=== PATIENT | female | born 1995 | race Caucasian/White ===

== ENCOUNTER 2017-09-30 08:21 | Observation (INO) ==
[2017-09-30] MEDS ORDERED: 0.9 % Sodium Chloride 1,000 ML IVC ONE ×2 (09:07→10:18)
[2017-09-30] MEDS ORDERED: Promethazine 25 MG in 0.9 % Sodium Chloride 50 ML IVPB ONE (09:12)
--- NOTE | 2017-09-30 09:12 | Emergency Department Note ---
Disposition Clinical Impression: Influenza B, Dehydration Qualifiers: Weeks of gestation: 24 weeks Qualified Code(s): Z3A.24 - 24 weeks gestation of Disposition: Admitted As Inpatient Condition: Fair Referrals: NONE,PCP [Primary Care Provider] - Forms: ED Satisfaction Letter General Adult HPI - General Chief complaint: ED Fever Stated complaint: Flu like symptoms Time Seen by Provider: 09/30/17 08:50 Source: patient Mode of arrival: private vehicle Limitations: no limitations Nursing Notes Reviewed: Yes Vital Signs Reviewed: Yes - History of Present Illness Pt Subjective Complaint: "I think I have the flu" Onset (ago): day(s) (1) Location: head, lower extremity, other ("Achey all over") Radiation: non-radiation Pain Severity: moderate Pain Scale: 5 Quality: aching Consistency: constant Improves with: nothing Worsens with: nothing Associated symptoms: Reports: fever/chills, headaches, loss of appetite, malaise , nausea/vomiting. Denies: confusion, chest pain, cough, diaphoresis, rash, seizure, shortness of breath, syncope, weakness, other Treatments Prior to Arrival: none - Related Data Previous Rx's Medication Instructions Recorded Naproxen [Naprosyn] 500 mg PO BID #10 tablet 02/07/16 Allergies Allergy/AdvReac Type Severity Reaction Status Date / Time codeine Allergy Rash Verified 02/07/16 14:34 Iodinated Contrast- Oral and Allergy Rash Verified 02/07/16 14:34 IV Dye [Iodinated Contrast Media - IV Dye] morphine Allergy Rash Verified 02/07/16 14:34 All systems ED: reviewed and negative except as stated. Review of Systems: As Per HPI Constitutional: Reports: fever. Denies: chills, weakness Eyes: Denies: eye pain, eye discharge, vision change ENT ED: Denies: ear pain, throat pain, congestion, dysphagia Cardiovascular: Denies: chest pain, palpitations, dyspnea on exertion, orthopnea , edema, syncope Respiratory: Denies: cough, dyspnea, wheezes, hemoptysis, stridor, sputum production Gastrointestinal: Reports: as per HPI, nausea, vomiting. Denies: abdominal pain , diarrhea, constipation Genitourinary: Denies: urgency, dysuria, frequency, hematuria, discharge Musculoskeletal: Reports: as per HPI, arthralgia, myalgia Integumentary: Denies: rash Neurological: Reports: as per HPI, headache. Denies: weakness, confusion, vertigo Hematological/Lymphatic: Denies: easy bleeding, easy bruising, lymphadenopathy Allergic/Immunologic: Denies: facial swelling, urticaria, itchy eyes Past Medical History - Past Medical History Attestation: Yes The following information was validated with the patient. Source: patient Medical history: Reports: no medical history Psychiatric history: Reports: no psych history TUGGER OPERATOR history: Reports: no TUGGER OPERATOR history LMP comments: (, 24 weeks) - Social History Smoking Status: Never smoker Smokeless Tobacco Status: No Alcohol use: Reports: none Drug use: Reports: none Physical Exam - General Limitations: no limitations General appearance: alert, in no apparent distress - Head Head exam: atraumatic, normocephalic, normal inspection - Eye Eye exam: Present: normal appearance, PERRL. Absent: scleral icterus, conjunctival injection, periorbital swelling - ENT ENT exam: normal oropharynx, mucous membranes dry - Neck Neck exam: Present: normal inspection, full ROM, trachea midline. Absent: tenderness, meningismus, lymphadenopathy - Chest Chest inspection: Present: normal inspection, symmetric chest wall rise. Absent : tenderness - Respiratory Respiratory exam: Present: normal lung sounds bilaterally. Absent: respiratory distress, wheezes, stridor, accessory muscle use, prolonged expiratory phase - Cardiovascular Cardiovascular exam: Present: normal rhythm, tachycardia, normal heart sounds. Absent: systolic murmur, diastolic murmur - Abdominal Exam Abdominal exam: Present: soft, Non-Tender. Absent: guarding, mass - Extremities Exam Extremities exam: Present: normal inspection, normal capillary refill. Absent: pedal edema - Back Exam Back exam: Present: normal inspection. Absent: CVA tenderness (R), CVA tenderness (L) - Neurological Exam Neurological exam: Present: alert, oriented X3, CN II-XII intact, normal gait - Psychiatric Psychiatric exam: Present: normal affect, normal mood - Skin Skin exam: Present: warm, dry, intact, normal color Course Course Narrative: Patient presents for evaluation of generalized malaise, nausea, vomiting and fever. 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 She states that she has been working a lot of hours and is feeling very tired and worn out. The vomiting has made this worse. She denies abdominal pain, leakage of fluid bleeding or vaginal discharge. She also denies any urinary complaints or bowel complaints. On exam , she is very pleasant, smiling, conversant. She is sitting up, talking with me and her family member. She is able to laugh and joke about the situation. She is well appearing, however, she is tachycardic with dry mucous membranes consistent with dehydration. Labs and fluids have been ordered along with antiemetics and Tylenol. Patient's flu swab is positive for influenza B. Urinalysis shows 15 of ketones , no sign of infection. Blood work is essentially unremarkable. - Reevaluation(s) Reevaluation #1: Patient's leg pain and headache are "much better". Still tachycardic. Time: 10:15 - Consultations Consultation #1: Case discussed with TUGGER OPERATOR. They aimee another liter of fluids then re-assess. Time: 10:19 Consultation #2: Still dry. Spoke with Renate - speech communication professor for TUGGER OPERATOR - she will admit the patient. Patient to go to Peds floor. Time: 11:43 Vital Signs Temperature 98.8 F 09/30/17 08:25 Pulse Rate 141 09/30/17 08:25 Respiratory Rate 18 09/30/17 08:25 Blood Pressure 94/56 09/30/17 08:25 O2 Sat by Pulse Oximetry 98 09/30/17 08:25 Temperature 98.8 F 09/30/17 08:25 Pulse Rate 120 09/30/17 11:32 Respiratory Rate 20 09/30/17 11:32 Blood Pressure 104/61 09/30/17 11:32 O2 Sat by Pulse Oximetry 100 09/30/17 11:32 Oxygen Delivery Oxygen Delivery Room Air Medical Decision Making - Medical Records Medical records reviewed: Yes I reviewed the patient's medical records. - Lab Data Lab results reviewed: Yes I reviewed the patient's lab results. Lab results narrative: Laboratory Last Values WBC 9.1 K/mcL (4.3-11.1) 09/30/17 09:22 RBC 3.98 M/mcL (3.82-4.97) 09/30/17 09:22 Hgb 11.9 g/dL (11.5-15.4) 09/30/17 09:22 Hct 34.9 % (35.3-44.9) L 09/30/17:22 MCV 87.7 fL (83.0-100.0) 09/30/17: MCH 29.9 pg (28.0-33.3) 09/30/17: MCHC 34.1 g/dL (31.6-35.5) 09/30/17: RDW 13.5 % (11.5-14.5) 09/30/17: Plt Count 239 K/mcL (140-400) 09/30/17: MPV 9.8 fL (9.4-12.4) 09/30/17: Immature Gran % 0.7 % (0-4) 09/30/17: Seg Neutrophils % 80.2 % 09/30/17: Lymphocytes % 4.5 % 09/30/17: Monocytes % 13.9 % 09/30/17: Eosinophils % 0.4 % 09/30/17: Basophils % 0.3 % 09/30/17: Neutrophils # 7.3 K/mcL (1.6-8.9) 09/30/17: Lymphocytes # 0.4 K/mcL (0.6-4.6) L 09/30/17: Monocytes # 1.3 K/mcL (0.0-1.3) 09/30/17: Eosinophils # 0.0 K/mcL (0.0-0.6) 09/30/17: Basophils # 0.0 K/mcL (0.0-0.2) 09/30/17: Sodium 134 mEq/L (136-145) L 09/30/17: Potassium 3.5 mEq/L (3.5-5.1) 09/30/17: Chloride 105 mEq/L (98-107) 09/30/17: Carbon Dioxide 22 mEq/L (23-29) L 09/30/17: BUN 4 mg/dL (6-20) L 09/30/17: Creatinine 0.58 mg/dL (0.60-1.20) L 09/30/17: Est GFR ( Amer) > 60 (> 60) 09/30/17: Est GFR (Non-Af Amer) > 60 (> 60) 09/30/17 BUN/Creatinine Ratio 7 (6-26) 09/30/17 Glucose 84 mg/dL (70-105) 09/30/17 Calculated Osmolality 274 (280-300) L 09/30/17 Lactic Acid 0.7 mmol/L (0.5-2.2) 09/30/17 Calcium 9.4 mg/dL (8.6-10.3) 09/30/17 Urine Color Yellow (Yellow) 09/30/17 Urine Clarity Turbid (Clear) A 09/30/17 Urine pH 7.0 pH Units (5.0-8.0) 09/30/17 Ur Specific Alto 1.020 (1.010-1.025) 09/30/17: Urine Protein Negative mg/dL (Neg-Trace) 09/30/17 Urine Glucose (UA) Normal mg/dL (Normal) 09/30/17: Urine Ketones 15 mg/dL (Negative) H 09/30/17:30 Urine Blood Negative (Negative) 09/30/17: Urine Nitrite Negative (Negative) 09/30/17: Urine Bilirubin Negative (Negative) 09/30/17: Urine Urobilinogen Normal mg/dL (Normal) 09/30/17: Ur Leukocyte Esterase Negative (Negative) 09/30/17: Urine Microscopic RBC 0-3 per hpf (0-3) 09/30/17: Urine Microscopic WBC 0-3 per hpf (0-3) 09/30/17:30 Ur Squamous Epith Cells Many per lpf (None-Few) H 09/30/17: Amorphous Sediment Few (Few) 09/30/17 Urine Bacteria Few per hpf (None-Few) 09/30/17: Hyaline Casts None Seen per lpf (None-Few) 09/30/17: Ur Culture Indicated? NO (NO) 09/30/17 Flu B is positive Result diagrams: 09/30/17:22 01/25/18 09:22 Lab Results 09/30/17 09/30/17 09/30/17 Range/Units 09:22 09:22 09:22 WBC 9.1 (4.3-11.1) K/mcL RBC 3.98 (3.82-4.97) M/mcL Hgb 11.9 (11.5-15.4) g/dL Hct 34.9 L (35.3-44.9) % MCV 87.7 (83.0-100.0) fL MCH 29.9 (28.0-33.3) pg MCHC 34.1 (31.6-35.5) g/dL RDW 13.5 (11.5-14.5) % Plt Count 239 (140-400) K/mcL MPV 9.8 (9.4-12.4) fL Immature Gran % 0.7 (0-4) % Seg Neutrophils % 80.2 % Lymphocytes % 4.5 % Monocytes % 13.9 % Eosinophils % 0.4 % Basophils % 0.3 % Neutrophils # 7.3 (1.6-8.9) K/mcL Lymphocytes # 0.4 L (0.6-4.6) K/mcL Monocytes # 1.3 (0.0-1.3) K/mcL Eosinophils # 0.0 (0.0-0.6) K/mcL Basophils # 0.0 (0.0-0.2) K/mcL Sodium 134 L (136-145) mEq/L Potassium 3.5 (3.5-5.1) mEq/L Chloride 105 (98-107) mEq/L Carbon Dioxide 22 L (23-29) mEq/L BUN 4 L (6-20) mg/dL Creatinine 0.58 L (0.60-1.20) mg/dL Est GFR ( Amer) > 60 (> 60) Est GFR (Non-Af Amer) > 60 (> 60) BUN/Creatinine Ratio 7 (6-26) Glucose 84 (70-105) mg/dL Calculated Osmolality 274 L (280-300) Lactic Acid 0.7 (0.5-2.2) mmol/L Calcium 9.4 (8.6-10.3) mg/dL Urine Color (Yellow) Urine Clarity (Clear) Urine pH (5.0-8.0) pH Units Ur Specific Alto (1.010-1.025) Urine Protein (Neg-Trace) mg/dL Urine Glucose (UA) (Normal) mg/dL Urine Ketones (Negative) mg/dL Urine Blood (Negative) Urine Nitrite (Negative) Urine Bilirubin (Negative) Urine Urobilinogen (Normal) mg/dL Ur Leukocyte Esterase (Negative) Urine Microscopic RBC (0-3) per hpf Urine Microscopic WBC (0-3) per hpf Ur Squamous Epith Cells (None-Few) per lpf Amorphous Sediment (Few) Urine Bacteria (None-Few) per hpf Hyaline Casts (None-Few) per lpf Ur Culture Indicated? (NO) 09/30/17 Range/Units 09:30 WBC (4.3-11.1) K/mcL RBC (3.82-4.97) M/mcL Hgb (11.5-15.4) g/dL Hct (35.3-44.9) % MCV (83.0-100.0) fL MCH (28.0-33.3) pg MCHC (31.6-35.5) g/dL RDW (11.5-14.5) % Plt Count (140-400) K/mcL MPV (9.4-12.4) fL Immature Gran % (0-4) % Seg Neutrophils % % Lymphocytes % % Monocytes % % Eosinophils % % Basophils % % Neutrophils # (1.6-8.9) K/mcL Lymphocytes # (0.6-4.6) K/mcL Monocytes # (0.0-1.3) K/mcL Eosinophils # (0.0-0.6) K/mcL Basophils # (0.0-0.2) K/mcL Sodium (136-145) mEq/L Potassium (3.5-5.1) mEq/L Chloride (98-107) mEq/L Carbon Dioxide (23-29) mEq/L BUN (6-20) mg/dL Creatinine (0.60-1.20) mg/dL Est GFR ( Amer) (> 60) Est GFR (Non-Af Amer) (> 60) BUN/Creatinine Ratio (6-26) Glucose (70-105) mg/dL Calculated Osmolality (280-300) Lactic Acid (0.5-2.2) mmol/L Calcium (8.6-10.3) mg/dL Urine Color Yellow (Yellow) Urine Clarity Turbid A (Clear) Urine pH 7.0 (5.0-8.0) pH Units Ur Specific Alto 1.020 (1.010-1.025) Urine Protein Negative (Neg-Trace) mg/dL Urine Glucose (UA) Normal (Normal) mg/dL Urine Ketones 15 H (Negative) mg/dL Urine Blood Negative (Negative) Urine Nitrite Negative (Negative) Urine Bilirubin Negative (Negative) Urine Urobilinogen Normal (Normal) mg/dL Ur Leukocyte Esterase Negative (Negative) Urine Microscopic RBC 0-3 (0-3) per hpf Urine Microscopic WBC 0-3 (0-3) per hpf Ur Squamous Epith Cells Many H (None-Few) per lpf Amorphous Sediment Few (Few) Urine Bacteria Few (None-Few) per hpf Hyaline Casts None Seen (None-Few) per lpf Ur Culture Indicated? NO (NO)
[2017-09-30 09:32] LABS: Basophils % 0.3 %; Eosinophils % 0.4 %; Hematocrit 34.9 % (35.3-44.9); Hemoglobin 11.9 g/dL (11.5-15.4); Immature Granulocytes % 0.7 % (0-4); Lymphocytes # 0.4 K/mcL (0.6-4.6); Lymphocytes % 4.5 %; Mean Corpuscular HGB Conc 34.1 g/dL (31.6-35.5); Mean Corpuscular Hemoglobin 29.9 pg (28.0-33.3); Mean Corpuscular Volume 87.7 fL (83.0-100.0); Mean Platelet Volume 9.8 fL (9.4-12.4); Monocytes # 1.3 K/mcL (0.0-1.3); Monocytes % 13.9 %; Neutrophils # 7.3 K/mcL (1.6-8.9); Platelet Count 239 K/mcL (140-400); Red Blood Count 3.98 M/mcL (3.82-4.97); Red Cell Distribution Width 13.5 % (11.5-14.5); Segmented Neutrophils % 80.2 %
[2017-09-30 09:40] LABS: Bilirubin,Urine Negative (Negative); Blood,Urine Negative (Negative); Clarity,Urine Turbid (Clear); Color,Urine Yellow (Yellow); Glucose,Urine (UA) Normal (Normal); Ketones,Urine 15 mg/dL (Negative); Leukocyte Esterase,Urine Negative (Negative); Nitrite,Urine Negative (Negative); Protein,Urine Negative (Neg-Trace); Urobilinogen,Urine Normal (Normal)
[2017-09-30 09:44] LABS: Bacteria,Urine Few per hpf (None-Few); Hyaline Casts,Urine None Seen per lpf (None-Few); RBC,Urine 0-3 per hpf (0-3); Squamous Epithelial Cell,Urine Many per lpf (None-Few); WBC,Urine 0-3 per hpf (0-3)
[2017-09-30 09:46] LABS: BUN/Creatinine Ratio 7 (6-26); Blood Urea Nitrogen 4 mg/dL (6-20); Calcium 9.4 mg/dL (8.6-10.3); Carbon Dioxide 22 mEq/L (23-29); Chloride 105 mEq/L (98-107); Glucose 84 mg/dL (70-105); Osmolality,Calculated 274 (280-300); Potassium 3.5 mEq/L (3.5-5.1); Sodium 134 mEq/L (136-145); eGFR For African Americans > 60 (> 60); eGFR For Non-African Americans > 60 (> 60)
[2017-09-30 09:57] LABS: Amorphous Sediment,Urine Few (Few)
--- NOTE | 2017-09-30 11:47 | Emergency Department Note ---
START Narrative - START START: I examined this patient and my medical decision-making was reviewed with the RESEARCH METHODS INSTRUCTOR/PA/Advanced Practice Nurse/Resident Physician. I agree with the documented findings, disposition and treatment plan as described except to the extent set forth below. I did see the patient spoke with her. She is positive for influenza B. Will be started on Tamiflu. She does have minimally elevated heart tones. She is bright and alert and well in appearance. [id number]
[2017-09-30] MEDS ORDERED: Ondansetron 4 MG/2 ML VIAL IVP PRN (14:43)
[2017-09-30] MEDS: D5% in Lactated Ringers 1,000 ML IVC SCH ×2 (15:13→22:12)
[2017-09-30] MEDS ORDERED: Acetaminophen 325 MG TABLET PO PRN (21:07)
--- NOTE | 2017-09-30 21:15 | OB/GYN History & Physical ---
Date of Encounter: 09/30/17 Time of Encounter: 21:09 Assessment and Plan (1) 23 weeks gestation of Current visit: Yes Status: Acute FHT 148 BPM via doppler. No related complaints. (2) Dehydration Current visit: Yes Status: Acute Pt has received 2 liter bolus in ER and now at 150ml/hr. She is now tolerating PO fluids. (3) Influenza B Current visit: Yes Status: Acute Tamiflu started this am. Will continue full course and treat symptoms as needed. (4) Sinus tachycardia by electrocardiogram Current visit: Yes Status: Acute Tachycardia likely related to viral illness, dehydration, and . She denies any symptoms including chest pain or SOB. Plan for ongoing IV hydration and frequent vital sign monitoring. If pt develops any new symptoms would consider telemetry and echocardiogram. History of Present Illness Chief complaint: influenza B, tachycardia HPI: Ms. Rosado is a 22 year old female presenting at 23w1d with body aches, chills, nausea, vomiting, and dehydration. She was evaluated in the ER and found to have influenza B. She received 2 liters of IV fluids in the ER but remained tachycardic despite the fluid bolus so the decision was made to admit for observation. She has continued to be tachycardic with heart rates 110-120's despite ongoing hydration. Pt does report feeling better. She denies LOF, VB, contractions, chest pain, or SOB. She does admit to some ongoing nausea but no vomiting since admission. She was feeling some palpitations with her tachycardia earlier today but now has no complaints. Her EKG showed sinus tachycardia. Past Med Surg Social Fam HX - Past Medical History Medical history: no medical history Psychiatric history: no psych history - Past Surgical History Surgical History: cholecystectomy - Social History Smoking Status: Never smoker Smokeless Tobacco Status: No Alcohol use: none Drug use: none Obstetrical History - Pregnancies : 1 Medications and Allergies Pnv Cmb#21/Iron/Folic Acid [ Complete Caplet] 1 tab PO DAILY 09/30/17 [ History] 3 Allergy/AdvReac Type Severity Reaction Status Date / Time codeine Allergy Rash Verified 02/07/16 14:34 Iodinated Contrast- Oral and Allergy Rash Verified 02/07/16 14:34 IV Dye [Iodinated Contrast Media - IV Dye] morphine Allergy Rash Verified 02/07/16 14:34 Review of System OB - Constitutional Constitutional ROS IM: chills (intermittent earlier today, none at this time), fever(s) (none since admission, up to 102 prior to presenting to ED) - Cardiovascular Cardiovascular: palpitations, rapid heart rate, no chest pain, no dyspnea, no leg edema - Gastrointestinal Gastrointestinal: nausea, vomiting (vomiting prior to admission), no cramping Exam - Vital Signs Vital signs: Initial Vital Signs Temp Pulse Resp BP Pulse Ox 98.8 F 141 18 94/56 98 09/30/17 08:25 09/30/17 08:25 09/30/17 08:25 09/30/17 08:25 09/30/17 08:25 - Constitutional Constitutional: well developed, well nourished, no acute distress - HEENT HEENT: Mucus Membranes Moist (dry earlier today, now improved) - Lungs Respiratory exam: CTAB - Cardiovascular Cardiovascular exam: +S1, +S2, tachycardia - Abdomen Abdomen: Present: gravid, non tender - Extremities Extremities exam: normal inspection - Uterus Uterus exam: Present: normal size (appropriate for 24 weeks gestation, FHT 148 BPM) Results Result Diagrams: 09/30/17 09:22 09/30/17 09:22 Abnormal lab results Hct 34.9 % (35.3-44.9) L 09/30/17 09:22 Lymphocytes # 0.4 K/mcL (0.6-4.6) L 09/30/17 09:22 Sodium 134 mEq/L (136-145) L 09/30/17 09:22 Carbon Dioxide 22 mEq/L (23-29) L 09/30/17 09:22 BUN 4 mg/dL (6-20) L 09/30/17 09:22 Creatinine 0.58 mg/dL (0.60-1.20) L 09/30/17 09:22 Calculated Osmolality 274 (280-300) L 09/30/17 09:22 Urine Clarity Turbid (Clear) A 09/30/17 09:30 Urine Ketones 15 mg/dL (Negative) H 09/30/17 09:30 Ur Squamous Epith Cells Many per lpf (None-Few) H 09/30/17 09:30 All other labs normal.
[2017-10-01] MEDS: D5% in Lactated Ringers 1,000 ML IVC SCH (04:24)
--- NOTE | 2017-10-01 07:35 | Discharge Summary ---
Date of Encounter: 10/01/17 Time of Encounter: 07:33 - Discharge Diagnosis (1) 23 weeks gestation of Priority: Secondary Status: Acute (2) Dehydration Priority: Secondary Status: Acute (3) Influenza B Priority: Primary Status: Acute (4) Sinus tachycardia by electrocardiogram Priority: Secondary Status: Acute - Discharge Medications Prescriptions: Ondansetron ODT [Zofran ODT] 4 mg SL Q6HR #21 tab.rapdis Oseltamivir [Tamiflu] 75 mg PO BID #7 capsule Home Medications: Pnv Cmb#21/Iron/Folic Acid [ Complete Caplet] 1 tab PO DAILY 09/30/17 [ History] Acetaminophen [Tylenol] 650 mg PO Q6HR PRN tablet 10/01/17 [Rx] Calcium Carbonate [Tums] 1,000 mg PO Q4HR PRN tab.chew 10/01/17 [Rx] Ondansetron ODT [Zofran ODT] 4 mg SL Q6HR #21 tab.rapdis 10/01/17 [Rx] Oseltamivir [Tamiflu] 75 mg PO BID #7 capsule 10/01/17 [Rx] Allergies/Adverse Reactions: 3 Allergy/AdvReac Type Severity Reaction Status Date / Time codeine Allergy Rash Verified 02/07/16 14:34 Iodinated Contrast- Oral and Allergy Rash Verified 02/07/16 14:34 IV Dye [Iodinated Contrast Media - IV Dye] morphine Allergy Rash Verified 02/07/16 14:34 Date of admission: 09/30/17 12:00 Primary care physician: PCP NONE Discharging clinician: Stefania Soria Anticipated date of discharge: 10/01/17 - Patient Status Disposition: Home, Self-Care Condition: Good Functional capacity at discharge: independent ambulation Overall status at discharge: patient is progressing back to baseline - Discharge Instructions Follow Up With: NONE,PCP [Primary Care Provider] - Stefania Soria CNM [Non-Partnered Physician] - - Diet and Activity Activity: increase activity as tolerated Diet: regular diet Hospital Course [employer]ALL [employer] Hospital course: Pt admitted for observation due to flu with dehydration and tachycardia. She was given IV hydration and tamiflu. Time Attestation: Total time spent providing and/or coordinating discharge services: Exam - Constitutional Vitals: Temp Pulse Resp BP Pulse Ox 98.8 F 108 16 94/49 98 10/01/17 04:21 10/01/17 04:21 10/01/17 04:21 10/01/17 04:21 10/01/17 04:21 General appearance IM: A&O X 3, pleasant, no acute distress - Respiratory Respiratory exam: Present: CTAB - Cardiovascular Cardiovascular exam IM: Present: RRR - GI/Abdominal GI/Abdominal exam IM: soft - Additional comments: fundus soft and nontender, FHT 135BPM via doppler - Extremities Exam Extremities exam IM: Present: normal inspection - Neurological Exam Neurological exam: normal gait, oriented X3
[2017-10-01 07:43] VITALS: BP 95/53
[2017-10-01] MEDS ORDERED: Prenatal Vit/FA 1 EACH TABLET PO SCH (09:00)
--- NOTE | 2017-10-02 10:19 | Electrocardiograph Report ---
[address] [place], [place] [address] Test Date: 2017-09-30 Pat Name: Matt Rosado Department: 101 Room: [facility] Gender: F Street Cleaner: MAGDIEL : 1995 Requested By: Stefania Soria Order Number: [id number] Reading MD: Betzaida Lloyd Measurements Intervals Spring Rate: 109 P: 57 NV: 144 QRS: 10 QRSD: 88 T: 7 QT: 305 QTc: 369 Interpretive Statements SINUS TACHYCARDIA POSSIBLE RIGHT VENTRICULAR CONDUCTION DELAY ABNORMAL RHYTHM ECG Electronically Signed On 10-02-2017 10:17:44 EST by Betzaida Lloyd
== END 2017-10-01 08:04 | disposition home or self-care (01) ==
LOC: 1NENUPED 08:21 → EMEROO 08:21 → 1NENUPED 12:30
PROVIDERS: ADMIT Internal Medicine; ATTEND Internal Medicine

== ENCOUNTER → 2017-11-24 13:57 | Observation (INO) ==
[2017-11-24 09:27] LABS: Bilirubin,Urine Negative (Negative); Blood,Urine Negative (Negative); Color,Urine Yellow (Yellow); Glucose,Urine (UA) Normal (Normal); Ketones,Urine Negative (Negative); Leukocyte Esterase,Urine Negative (Negative); Nitrite,Urine Negative (Negative); Protein,Urine Negative (Neg-Trace); Specific Gravity,Urine 1.023 (1.010-1.025); Urobilinogen,Urine Normal (Normal)
[2017-11-24 09:32] LABS: Amphetamine Screen,Urine Negative ng/mL (Cutoff=1000); Barbiturate Screen,Urine Negative ng/mL (Cutoff=200); Benzodiazepines Screen,Urine Negative ng/mL (Cutoff=200); Cannabinoid Screen,Urine Negative ng/mL (Cutoff = 50); Cocaine Screen,Urine Negative ng/mL (Cutoff= 300); Opiate Screen,Urine Negative ng/mL (Cutoff=300); Phencyclidine Screen,Urine Negative ng/mL (Cutoff=25)
[2017-11-24 09:35] LABS: Clarity,Urine Clear (Clear)
--- NOTE | 2017-11-24 11:21 | OB/GYN Progress Note ---
Date of Encounter: 11/24/17 Time of Encounter: 09:15 - Assessment and Plan (1) 31 weeks gestation of Current Visit: Yes Status: Acute (2) uterine contractions in third trimester, antepartum Current Visit: Yes Status: Acute Contractions noted on toco. SVE closed/thick/high. Will PO hydrate. If contractions persist will consider IV fluids and tocolysis. Subjective - Subjective Interval history: 22 year-old presenting at 31 weeks gestation with c/o pain in pelvis and lower back. She reports a sudden onset of sharp pain in lower back and abdomen at 0400 this am that lasted about 45 minutes followed by brief, intermittent episodes of pressure and pain since. She denies LOF or VB. She does report a slight increase in discharge for the last week or two. No urinary sx. No fevers. She denies diarrhea or constipation. She does admit to some nausea and vomiting prior to onset of pain that she believes was related to something that she ate and some heartburn. She denies any ongoing nausea and vomiting. She states she had intercourse yesterday. She reports drinking 2-3 large bottles of water per day. Antepartum ROS: movement normal, contractions (unsure if having contractions), no loss of fluid, no vaginal bleeding Objective - Vital Signs Vital Signs: Intake and Output 11/23/17 11/24/17 11/24/17 23:59 07:59 15:59 Other: Weight 70.2 kg Patient Weight 11/24/17 23:59 Weight 70.2 kg - Exam FHR: category 1 FHR comments: FHT reactive for GA Abdomen: Present: soft, gravid. Absent: tenderness Uterus: Present: normal. Absent: tenderness Cervical dilation: closed Cervix effacement: thick station: high Comments: SSE with scant amount thin, white discharge in vault. No pooling. Cervix visually closed. Unable to obtain FFN due pt report of recent intercourse.
[2017-11-24 12:41] LABS: Candida DNA Not Detected (Not Detect); Gardnerella DNA ***DETECTED*** (Not Detect); Trichomonas DNA Not Detected (Not Detect)
[~2017-11-24 13:57] MED LIST: Ringers Solution, Lactated 1,000 ML IVC ONE; Terbutaline 1 MG/ML VIAL SQ ONE
== END | disposition home or self-care (01) ==
LOC: 1NENULAB
PROVIDERS: ADMIT Obstetrics & Gynecology; ATTEND Obstetrics & Gynecology

== ENCOUNTER → 2017-12-27 12:44 | Observation (INO) ==
[2017-12-27 07:58] LABS: Bilirubin,Urine Negative (Negative); Blood,Urine Negative (Negative); Color,Urine Yellow (Yellow); Glucose,Urine (UA) Normal (Normal); Ketones,Urine Negative (Negative); Leukocyte Esterase,Urine Negative (Negative); Nitrite,Urine Negative (Negative); Protein,Urine Negative (Neg-Trace); Specific Gravity,Urine 1.022 (1.010-1.025); Urobilinogen,Urine Normal (Normal)
[2017-12-27 08:01] LABS: Bacteria,Urine None Seen per hpf (None-Few); Hyaline Casts,Urine None Seen per lpf (None-Few); Squamous Epithelial Cell,Urine Many per lpf (None-Few)
[2017-12-27 08:07] LABS: Clarity,Urine Clear (Clear)
[2017-12-27 08:17] LABS: Amphetamine Screen,Urine Negative ng/mL (Cutoff=1000); Barbiturate Screen,Urine Negative ng/mL (Cutoff=200); Benzodiazepines Screen,Urine Negative ng/mL (Cutoff=200); Cannabinoid Screen,Urine Negative ng/mL (Cutoff = 50); Cocaine Screen,Urine Negative ng/mL (Cutoff= 300); Opiate Screen,Urine Negative ng/mL (Cutoff=300); Phencyclidine Screen,Urine Negative ng/mL (Cutoff=25)
--- NOTE | 2017-12-27 11:15 | OB/GYN Progress Note ---
Date of Encounter: 12/27/17 Time of Encounter: 11:14 - Assessment and Plan (1) 35 weeks gestation of Current Visit: Yes Status: Acute (2) uterine contractions in third trimester, antepartum Current Visit: No Status: Acute SVE 1cm per RN. Pt lives an hour away and desires to walk and see if she changes before going home. She declines pain medication at this time. Will check SVE again in 1-2 hours and discharge home if no change. Subjective - Subjective Interval history: 22 year-old G1 presenting at 35w5d with c/o contractions that started last evening and have gotten closer and stronger. She admits to intercourse yesterday. No leaking or bleeding. Good FM. No urinary sx. Antepartum ROS: movement normal, contractions, no loss of fluid, no vaginal bleeding Objective - Vital Signs Vital Signs: Intake and Output 12/26/17 12/27/17 12/27/17 23:59 07:59 15:59 Other: Weight 32.885 kg Patient Weight 12/27/17 23:59 Weight 32.885 kg - Exam FHR: category 1 FHR comments: NST reactive Auscultation: bilateral: normal Abdomen: Present: soft, gravid Uterus: Present: normal Cervical dilation: 1cm per RN, repeat exam >2 hours after first with no change - Labs Labs: Abnormal lab results Ur Squamous Epith Cells Many per lpf (None-Few) H 12/27/17 07:42
== END | disposition home or self-care (01) ==
LOC: 1NENULAB
PROVIDERS: ADMIT Obstetrics & Gynecology; ATTEND Obstetrics & Gynecology

== ENCOUNTER 2018-01-27 02:51 | Observation (INO) ==
[2018-01-27] MEDS ORDERED: Metoclopramide 10 MG/2 ML VIAL IVP PRN (03:48)
[2018-01-27] MEDS ORDERED: Naloxone 0.4 MG/ML INJ IVP PRN (03:48)
[2018-01-27] MEDS ORDERED: Famotidine 20 MG/2 ML VIAL IVP PRN (03:48)
[2018-01-27] MEDS ORDERED: Ondansetron 4 MG/2 ML VIAL IVP PRN (03:48)
[2018-01-27] MEDS ORDERED: *HR* Nalbuphine 10 MG/ML AMPUL IVP PRN (03:48)
[2018-01-27 04:42] LABS: Amphetamine Screen,Urine Negative ng/mL (Cutoff=1000); Barbiturate Screen,Urine Negative ng/mL (Cutoff=200); Benzodiazepines Screen,Urine Negative ng/mL (Cutoff=200); Cannabinoid Screen,Urine Negative ng/mL (Cutoff = 50); Cocaine Screen,Urine Negative ng/mL (Cutoff= 300); Opiate Screen,Urine Negative ng/mL (Cutoff=300); Phencyclidine Screen,Urine Negative ng/mL (Cutoff=25)
[2018-01-27 04:44] LABS: Basophils # 0.1 K/mcL (0.0-0.2); Basophils % 0.5 %; Eosinophils # 0.3 K/mcL (0.0-0.6); Eosinophils % 1.7 %; Hematocrit 37.5 % (35.3-44.9); Hemoglobin 12.9 g/dL (11.5-15.4); Immature Granulocytes % 1.6 % (0-4); Lymphocytes # 3.1 K/mcL (0.6-4.6); Lymphocytes % 18.9 %; Mean Corpuscular HGB Conc 34.4 g/dL (31.6-35.5); Mean Corpuscular Hemoglobin 28.2 pg (28.0-33.3); Mean Corpuscular Volume 82.1 fL (83.0-100.0); Mean Platelet Volume 10.3 fL (9.4-12.4); Monocytes # 1.8 K/mcL (0.0-1.3); Monocytes % 10.8 %; Neutrophils # 11.1 K/mcL (1.6-8.9); Platelet Count 277 K/mcL (140-400); Red Blood Count 4.57 M/mcL (3.82-4.97); Red Cell Distribution Width 13.5 % (11.5-14.5); Segmented Neutrophils % 66.5 %
--- NOTE | 2018-01-27 06:45 | OB/GYN History & Physical ---
Date of Encounter: 01/27/18 Time of Encounter: 06:38 Assessment and Plan (1) 40 weeks gestation of Current visit: Yes Status: Acute (2) Active labor at term Current visit: Yes Status: Acute Admit for expectant management. Epidural if requested. Anticipate . History of Present Illness Chief complaint: contractions HPI: Ms. Rosado is a 22 year old female presenting at 40w1d with c/o contractions since yesterday that started getting closer and stronger around 2140 last evening. She was 3cm upon arrival and changed to 4-5cm. She also reports some bloody show through the night. No leaking fluid or heavy bleeding. Good FM. This has been complicated by contractions at 31 weeks for which she was given terburtaline. Blood type O positive Rubella immune Serologies negative GBS negative Past Med Surg Social Fam HX - Past Medical History Medical history: no medical history Psychiatric history: no psych history - Past Surgical History Surgical History: cholecystectomy - Social History Smoking Status: Never smoker Smokeless Tobacco Status: No Alcohol use: none Drug use: none - Family History Mother Living Status: Still Living Hx Family Cardiac Disorders: Yes (Tachycardia) Hx Family Respiratory Disorders: No Hx Family Cancer: No Hx Family GI Disorders: No Hx Family Endocrine Disorder: No Hx Family Neuromuscular Disorders: No Hx Family Neurologic Disorders: No Hx Family HEENT Disorders: No Hx Family Autoimmune Disorders: No Obstetrical History - Pregnancies : 1 Medications and Allergies Pnv Cmb#21/Iron/Folic Acid [ Complete Caplet] 1 tab PO DAILY 09/30/17 [ History] Tums 1 tab PO PRN PRN 01/27/18 [History] 3 Allergy/AdvReac Type Severity Reaction Status Date / Time codeine Allergy Rash Verified 01/27/18 03:10 Iodinated Contrast- Oral and Allergy Rash Verified 01/27/18 03:10 IV Dye [Iodinated Contrast Media - IV Dye] morphine Allergy Rash Verified 01/27/18 03:10 Review of System OB All systems PM: reviewed and no additional remarkable complaints except as stated Exam - Constitutional Constitutional: well developed, well nourished, moderate distress - HEENT HEENT: Mucus Membranes Moist - Lungs Respiratory exam: CTAB - Cardiovascular Cardiovascular exam: RRR - Abdomen Abdomen: Present: gravid, non tender - Extremities Extremities exam: normal inspection - Vulva Vulva: bilateral: normal - Vagina Vagina: Present: normal moisture - Cervix Dilation: 4 (4-5 per RN) Effacement: 80 Station: -1 - Uterus Uterus exam: Present: normal size - Anus/Rectum Anus/Rectum: Present: normal perianal skin Results Result Diagrams: 01/27/18 04:00 Abnormal lab results WBC 16.6 K/mcL (4.3-11.1) H 01/27/18 04:00 MCV 82.1 fL (83.0-100.0) L 01/27/18 04:00 Neutrophils # 11.1 K/mcL (1.6-8.9) H 01/27/18 04:00 Monocytes # 1.8 K/mcL (0.0-1.3) H 01/27/18 04:00 All other labs normal. - VTE Reasons for not Prescribing Prophylaxis: Treatment not Indicated - Low risk for VTE
[2018-01-27] MEDS ORDERED: Epidural Premix (fent/bupiv) 110 ML EP SCH (07:30)
--- NOTE | 2018-01-27 08:15 | Anesthesia Evaluation PreOp ---
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 EKG reports right vent conduction delay & QTC <400.), Other (reports HR 105-110 normal and occ up to 120's, rests and it go back down.) Pulmonary History: Denies Any Significant HX CAREGIVERS NON MEDICAL History: Denies Any Significant HX Other Medical History: Denies Any Significant HX Anesthesia History: No Prior Anesthetic Complications, Past Anesthesia (slow to wake up from anesthesia) Alcohol Use: none Drug use: none Medications and Allergies Pnv Cmb#21/Iron/Folic Acid [ Complete Caplet] 1 tab PO DAILY 09/30/17 [ History] Tums 1 tab PO PRN PRN 01/27/18 [History] 3 Allergy/AdvReac Type Severity Reaction Status Date / Time codeine Allergy Rash Verified 01/27/18 03:10 Iodinated Contrast- Oral and Allergy Rash Verified 01/27/18 03:10 IV Dye [Iodinated Contrast Media - IV Dye] morphine Allergy Rash Verified 01/27/18 03:10 Anesthesia Results - Labs 01/27/18 04:00
[2018-01-27] MEDS ORDERED: Epidural Premix (fent/bupiv) 110 ML EP ONE ×2 (08:24→15:23)
--- NOTE | 2018-01-27 08:52 | OB Labor Progress Note ---
Date of Encounter: 01/27/18 Time of Encounter: 08:50 Labor Progress Note - Subjective Subjective: Pt states painful contractions, desires epidural, - Cervix Cervix: 6/100/-1 - Heart Tones Heart Tones: 115/moderate/-accels/early/variable - [place]: q2-4 - Plan Plan: Obtain epidural GBS negative Anticipate
[2018-01-27] MEDS: Ringers Solution, Lactated 1,000 ML IVC SCH ×3 (08:54→14:20)
--- NOTE | 2018-01-27 10:03 | Anesthesia Procedures ---
Date of Encounter: 01/27/18 Time of Encounter: 08:58 Procedures: Anesthesia - Epidural/Spinal Patient ID/Chart reviewed: Yes Patient examined: Yes OB Eval: Gestational age: 40 OB Eval: : 1 OB Eval: Contractions: Non-stressed pattern Consent Obtained: Yes Supplemental Oxygen: Nasal Cannula Site Prep: Aseptic Technique, Sterile prep and drape, 0.5% Chlorhexidine/Alcohol Patient position: upright Local Anesthetic: Lidocaine 1% Amount of Local Anesthetic used: 2 Touhy Needle Gauge: 18 Touhy Needle Depth (cm): 5 Catheter Depth at Skin (cm): 10 Test Dose (1.5% Lido + Epi): Volume given (mls): 3 Test Dose Result: Negative Loading Dose: Other: 10 from solution Loading Dose Administered: Thru Catheter Infusion Med: 0.125% Bupivacaine w/ 2 mcg/ml Fentanyl Infusion Rate (mls/hr): [address]: Tegaderm, Tape Interspace Used: L3-L4 Loss of Resistance (MARLY): Yes (saline) Blood: No CSF: No Paresthesia: No Procedure: vss though out, FHR stable per RN's
--- NOTE | 2018-01-27 11:20 | OB Labor Progress Note ---
Date of Encounter: 01/27/18 Time of Encounter: 11:15 Labor Progress Note - Heart Tones Heart Tones: 115/minimal/+ accel with scalp stim/variable prolonged/ - [place]: 2-5 - Interventions Interventions: IUPC and FSE placed - Plan Plan: Start pitocin per policy Frequent repositoning Anticipate
[2018-01-27] MEDS ORDERED: Oxytocin 20 units/ LR 1000 mL 20 UNIT/1,000 ML BAG IVC SCH ×2 (11:30→17:35)
--- NOTE | 2018-01-27 16:52 | OB/GYN Procedure Note ---
Delivery - Delivery Date: 01/27/18 Provider: Callie Chao Intrapartum events: none Delivery induction: none Delivery monitor: external FHT, external uterine, internal FHT, internal uterine Anesthesia: epidural Quantitated Blood Loss: 150 - (s) Infant A Infant Delivery Date: 01/27/18 Infant Delivery Time: 15:43 Presentation: vertex Position: OA Gender: Female Viability: Viable Pounds: 6 Ounces: 5 Weight Gram: 2.88 kg at 1 minute: 4 at 5 mins: 9 Shoulder Dystocia: not encountered Specimens collected: cord blood, venous cord gases, arterial cord gases Placenta: spontaneous Cord: 3 umbilical vessels - Repair Episiotomy: none Laceration Description: None - Complications Delivery complications: none Delivery comments: Admitted in spontaneous labor, progressed to complete. Maternal bearing down efforts of liveborn female. Vertex delivered OA, shoulders and body easily followed. No nuchal cord or shoulder dystocia encountered. placed on maternal abdomen for drying and stimulation. Cord clamped and cut and infant taken to radiant warmer. Apgars 4/9. Cord gases obtained, unable to be processed by lab due to specimen specimen insufficiency. Placenta delivered spontaneously (Adam), complete upon inspection. Pitocin started per policy. Fundus massaged until firm. No perineal lacerations noted. EBL 150. Mother and left bonding on labor and delivery - Disposition Mom disposition: stable in LDR disposition: stable in LDR
[2018-01-27] MEDS ORDERED: Lanolin 7 G OINT...G. TP PRN (17:35)
[2018-01-27] MEDS ORDERED: Acetaminophen 325 MG TABLET PO PRN (17:35)
[2018-01-27] MEDS ORDERED: Ibuprofen 600 MG TABLET PO PRN (17:35)
[2018-01-27] MEDS ORDERED: Benzocaine/Menthol 56 GM AEROSOL SPRAY TP PRN (17:35)
[2018-01-28 08:15] VITALS: BP 121/79
--- NOTE | 2018-01-28 08:54 | Discharge Summary ---
Date of Encounter: 01/28/18 Time of Encounter: 08:51 - Discharge Diagnosis (1) Vaginal delivery Priority: Primary Status: Acute Comments: Continue labor management discharge home today follow up in office in 4-6 weeks (2) Breast feeding status of mother Priority: Secondary Status: Acute - Discharge Medications Prescriptions: Ibuprofen [Motrin] 600 mg PO Q6HR PRN #60 tablet PRN Reason: Cramping Breast Pump [BREAST PUMP] 1 each .ROUTE AD #1 each Home Medications: Benzocaine/Menthol [place] [Dermoplast [place]] 1 appl TP QID PRN aerosol 01/28/18 [Rx] Breast Pump [BREAST PUMP] 1 each .ROUTE AD #1 each 01/28/18 [Rx] Ibuprofen [Motrin] 600 mg PO Q6HR PRN #60 tablet 01/28/18 [Rx] Lanolin [Lansinoh] 1 appl TP QID PRN oint...g. 01/28/18 [Rx] Vit/FA 1 each PO DAILY tablet 01/28/18 [Rx] Allergies/Adverse Reactions: 3 Allergy/AdvReac Type Severity Reaction Status Date / Time codeine Allergy Rash Verified 01/27/18 03:10 Iodinated Contrast- Oral and Allergy Rash Verified 01/27/18 03:10 IV Dye [Iodinated Contrast Media - IV Dye] morphine Allergy Rash Verified 01/27/18 03:10 Data Procedures and tests throughout hospitalization: Laboratory Tests 01/27/18 01/27/18 03:00 04:00 WBC 16.6 H RBC 4.57 Hgb 12.9 Hct 37.5 MCV 82.1 L MCH 28.2 MCHC 34.4 RDW 13.5 Plt Count 277 MPV 10.3 Immature Gran % 1.6 Seg Neutrophils % 66.5 Lymphocytes % 18.9 Monocytes % 10.8 Eosinophils % 1.7 Basophils % 0.5 Neutrophils # 11.1 H Lymphocytes # 3.1 Monocytes # 1.8 H Eosinophils # 0.3 Basophils # 0.1 Urine Opiates Screen Negative Ur Barbiturates Screen Negative Ur Phencyclidine Scrn Negative Ur Amphetamines Screen Negative U Benzodiazepines Scrn Negative Urine Cocaine Screen Negative U Marijuana (THC) Screen Negative Date of admission: 01/27/18 02:51 Primary care physician: PCP NONE Consults: 01/27/18 17:35 Consult to Ammonium Sulfate Operator [CONS] Routine Comment: Vaginal delivery, consult needed Discharging clinician: Karen Wilcox Anticipated date of discharge: 01/28/18 - Patient Status Disposition: Home, Self-Care Condition: Good - Discharge Instructions Follow Up With: NONE,PCP [Primary Care Provider] - - Diet and Activity Activity: increase activity as tolerated Diet: regular diet Hospital Course Reason for admission: active labor Delivery: Episiotomy: none Laceration: none Other procedures: none complications: none Discharge diagnosis: IUP at term delivered baby: female (breast feeding) Time Attestation: Total time spent providing and/or coordinating discharge services: Time Spent: Less than 30 minutes Exam - Constitutional Vitals: Temp Pulse Resp BP Pulse Ox 98.3 F 73 16 121/79 99 01/28/18 08:14 01/28/18 08:14 01/28/18 08:14 01/28/18 08:14 01/27/18 20:40 General appearance IM: A&O X 3, pleasant, answers questions appropriately - Respiratory Respiratory exam: Present: CTAB - Cardiovascular Cardiovascular exam IM: Present: RRR, +S1, +S2 - GI/Abdominal GI/Abdominal exam IM: normal bowel sounds - Uterine Tone: Firm Uterus Position: At Umbilicus, Midline - Extremities Exam Extremities exam IM: Present: full ROM, normal capillary refill, normal inspection - Neurological Exam Neurological exam: alert, oriented X3, reflexes normal
[2018-01-28] MEDS ORDERED: Prenatal Vit/FA 1 EACH TABLET PO SCH (09:00)
== END 2018-01-28 16:30 | disposition home or self-care (01) | DRG 775 ==
LOC: 1NENULAB → INTOOBSV 02:51 → OBSVTOIN 02:51 → 1NENUOBS 18:39
PROVIDERS: ADMIT Registered Nurse; ATTEND Registered Nurse

== ENCOUNTER 2020-10-06 07:58 | Inpatient (IN) ==
[2020-10-06] MEDS ORDERED: Lidocaine 1% 20 ML MDV ID PRN (08:58)
[2020-10-06] MEDS ORDERED: *HR* Nalbuphine 10 MG/ML AMPUL IV PRN ×2 (08:58→16:31)
[2020-10-06] MEDS ORDERED: Metoclopramide 10 MG/2 ML VIAL IVP PRN (08:58)
[2020-10-06] MEDS ORDERED: Famotidine 20 MG/2 ML VIAL IVP PRN (08:58)
[2020-10-06] MEDS ORDERED: Azithromycin 500 MG in 0.9 % Sodium Chloride 250 ML IVPB ONE (08:58)
[2020-10-06] MEDS ORDERED: Ondansetron 4 MG/2 ML VIAL IVP PRN ×2 (08:58→18:50)
[2020-10-06] MEDS ORDERED: Naloxone 0.4 MG/ML INJ IVP PRN (08:58)
[2020-10-06] MEDS ORDERED: Ringers Solution, Lactated 1,000 ML IVC SCH (09:00)
[2020-10-06 09:17] LABS: Basophils # 0.1 K/mcL (0.0-0.2); Basophils % 0.5 %; Eosinophils # 0.1 K/mcL (0.0-0.6); Eosinophils % 0.9 %; Hematocrit 37.5 % (35.3-44.9); Hemoglobin 12.2 g/dL (11.5-15.4); Immature Granulocytes % 0.8 % (0-4); Lymphocytes # 2.3 K/mcL (0.6-4.6); Lymphocytes % 18.5 %; Mean Corpuscular HGB Conc 32.5 g/dL (31.6-35.5); Mean Corpuscular Hemoglobin 26.4 pg (28.0-33.3); Mean Corpuscular Volume 81.2 fL (83.0-100.0); Mean Platelet Volume 10.8 fL (9.4-12.4); Monocytes # 1.2 K/mcL (0.0-1.3); Monocytes % 9.7 %; Neutrophils # 8.5 K/mcL (1.6-8.9); Platelet Count 280 K/mcL (140-400); Red Blood Count 4.62 M/mcL (3.82-4.97); Red Cell Distribution Width 13.3 % (11.5-14.5); Segmented Neutrophils % 69.6 %; White Blood Count 12.2 K/mcL (4.3-11.1)
[2020-10-06] MEDS ORDERED: Oxytocin 20 units/ LR 1000 mL 20 UNIT/1,000 ML BAG IVC SCH ×2 (10:00→16:26)
[2020-10-06 10:36] LABS: Amphetamine Screen,Urine Negative ng/mL (Cutoff=1000); Barbiturate Screen,Urine Negative ng/mL (Cutoff=200); Benzodiazepines Screen,Urine Negative ng/mL (Cutoff=200); Cannabinoid Screen,Urine Negative ng/mL (Cutoff = 50); Cocaine Screen,Urine Negative ng/mL (Cutoff= 300); Opiate Screen,Urine Negative ng/mL (Cutoff=300); Phencyclidine Screen,Urine Negative ng/mL (Cutoff=25)
[2020-10-06] MEDS ORDERED: EPHEDrine 50 MG/ML VIAL IVP PRN (10:36)
[2020-10-06] MEDS ORDERED: Epidural Premix (fent/bupiv) 110 ML EP SCH (10:45)
[2020-10-06] MEDS ORDERED: Ropivacaine/PF 0.2% 20 ML VIAL ONE (12:19)
[2020-10-06] MEDS ORDERED: *HR* FentaNYL (PF) 100 MCG/2 ML VIAL ONE (12:19)
[2020-10-06] MEDS ORDERED: Benzocaine/Menthol 56 GM AEROSOL SPRAY TP PRN (16:26)
[2020-10-06] MEDS ORDERED: Ibuprofen 600 MG TABLET PO PRN (16:26)
[2020-10-06] MEDS ORDERED: Lanolin 7 G OINT...G. TP PRN (16:26)
[2020-10-06] MEDS ORDERED: Rho Immune Globulin 1,500 UNIT SYRINGE IM PRN (16:26)
[2020-10-06] MEDS ORDERED: Sennosides 8.6 MG TABLET PO PRN (16:26)
[2020-10-06] MEDS ORDERED: Measles/Mumps/Rubella Vacc 0.5 ML VIAL SQ PRN (16:26)
[2020-10-06] MEDS ORDERED: Oxytocin 20 units/ LR 1000 mL 20 UNIT/1,000 ML BAG IVC ONE (16:26)
[2020-10-06] MEDS ORDERED: Acetaminophen 325 MG TABLET PO PRN (16:26)
[2020-10-07 03:46] LABS: Basophils # 0.1 K/mcL (0.0-0.2); Basophils % 0.4 %; Eosinophils # 0.1 K/mcL (0.0-0.6); Eosinophils % 0.8 %; Hematocrit 34.1 % (35.3-44.9); Hemoglobin 11.3 g/dL (11.5-15.4); Immature Granulocytes % 0.5 % (0-4); Lymphocytes # 1.8 K/mcL (0.6-4.6); Lymphocytes % 12.8 %; Mean Corpuscular HGB Conc 33.1 g/dL (31.6-35.5); Mean Corpuscular Hemoglobin 26.7 pg (28.0-33.3); Mean Corpuscular Volume 80.6 fL (83.0-100.0); Mean Platelet Volume 10.5 fL (9.4-12.4); Monocytes # 1.2 K/mcL (0.0-1.3); Monocytes % 8.9 %; Neutrophils # 10.7 K/mcL (1.6-8.9); Platelet Count 233 K/mcL (140-400); Red Blood Count 4.23 M/mcL (3.82-4.97); Red Cell Distribution Width 13.3 % (11.5-14.5); Segmented Neutrophils % 76.6 %
[2020-10-07 07:54] VITALS: BP 113/71
[2020-10-07] MEDS ORDERED: Prenatal Vit/FA 1 EACH TABLET PO SCH (09:00)
[2020-10-07] MEDS ORDERED: Ondansetron ODT 4 MG TAB.RAPDIS SL ONE (09:19)
[2020-10-07] MEDS ORDERED: *HR* HYDROcodone/Acet 5/325 mg TABLET PO ONE (09:20)
== END 2020-10-07 16:20 | disposition home or self-care (01) | DRG 807 ==
LOC: 1NENULAB 07:58 → 1NENUOBS 18:14
PROVIDERS: ADMIT Student in an Organized Health Care Education/Training Program; ATTEND Student in an Organized Health Care Education/Training Program